=== PATIENT | male | born 2005 | race African-American/Black ===

== ENCOUNTER 2025-07-28 22:18 | Emergency (ER) | payer OTHER ==
[~2025-07-28] VITALS: Ht 177.8 cm; Wt 82.2 kg
[2025-07-29] MEDS ORDERED: DICL75TA PO (06:22)
[2025-07-29 06:47] VITALS: BP 109/62; TEMP 96.8; O2SAT 100
== END 2025-07-29 06:49 | disposition home or self-care (01) ==
LOC: M ED 22:18
DX: M75.22 Bicipital tendinitis, left shoulder (principal); Z79.899 Other long term (current) drug therapy

== ENCOUNTER 2025-10-05 21:22 | Emergency (ER) | payer OTHER ==
[~2025-10-05] VITALS: Ht 175.3 cm; Wt 82.4 kg
[~2025-10-05 21:22] MED LIST: DICL75TA PO
[2025-10-05 21:23] VITALS: BP 132/67; TEMP 99.1; O2SAT 99
[2025-10-05] MEDS ORDERED: METH-1164 PO (22:21)
[2025-10-05] MEDS: KETOROLAC 60 MG/2 ML VIAL IM ONE (22:24)
== END 2025-10-05 22:30 | disposition home or self-care (01) ==
LOC: M ED 21:22
DX: M54.50 Low back pain, unspecified (principal); F17.200 Nicotine dependence, unspecified, uncomplicated; Z79.899 Other long term (current) drug therapy
CPT/HCPCS: 96372; 99283; J1885